=== PATIENT | male | born 1955 | race African-American/Black ===

== ENCOUNTER 2021-04-17 04:54 | Day surgery (SDC) | payer BC, OTHER ==
[2021-03-20 16:44] VITALS: BMI 29.2
[2021-04-17] MEDS ORDERED: MIDAZOLAM HCL 2 MG/2 ML SINGLE DOSE VIAL ONE (12:04)
[2021-04-17 13:08] VITALS: TEMP 97.3
[2021-04-17 14:11] VITALS: BP 102/72; PULSE 88
[2021-04-17 14:16] LABS: BASO % 1.9 % (0-2.0); HEMOGLOBIN 9.1 GM/dL (11.7-16.9); LYMPH % 23.3 % (8-40); MCH 24.9 pg (25.7-33.7); MCHC 31.5 g/dl (32.0-35.9); MEAN CELL VOLUME 79.2 fl (80-96); MEAN PLT VOLUME 9.8 fl (7.5-11.1); MONO % 7.7 % (3.8-10.2); NEUT % 66.1 % (42.8-82.8); PLATELET COUNT 184 10^3/uL (134-434); RBC 3.66 M/mm3 (4.00-5.60); RDW 17.1 % (11.9-15.9); WHITE BLOOD COUNT 3.2 K/mm3 (4.0-10.0)
[2021-04-17 14:23] LABS: INR 1.41 (0.83-1.09); PROTHROMBIN TIME (PATIENT) 16.5 SEC (9.7-13.0)
[2021-04-17 14:36] LABS: ALBUMIN 3.7 g/dl (3.4-5.0); CALCIUM 8.7 mg/dL (8.5-10.1)
[2021-04-17 14:38] LABS: BLOOD UREA NITROGEN 27.6 mg/dL (7-18)
[2021-04-17 14:40] LABS: CREATININE 1.5 mg/dL (0.55-1.3)
[2021-04-17 14:41] LABS: BILIRUBIN,TOTAL 1.7 mg/dL (0.2-1); TOT PROT 6.7 g/dl (6.4-8.2)
== END 2021-04-17 14:25 | disposition home or self-care (01) ==
LOC: JASU-ENDO 04:54
PROVIDERS: ATTEND Internal Medicine Gastroenterology
PROC: 0DB98ZX Excision of Duodenum, Via Natural or Artificial Opening Endoscopic, Diagnostic (ICD-10-PCS; 2021-04-17)
PROC: 0DB68ZX Excision of Stomach, Via Natural or Artificial Opening Endoscopic, Diagnostic (ICD-10-PCS; 2021-04-17)
PROC: 0DJD8ZZ Inspection of Lower Intestinal Tract, Via Natural or Artificial Opening Endoscopic (ICD-10-PCS; principal; 2021-04-17 12:00)
DX: Z12.11 Encounter for screening for malignant neoplasm of colon (principal); K57.30 Diverticulosis of large intestine without perforation or abscess without bleeding; K64.8 Other hemorrhoids; K29.50 Unspecified chronic gastritis without bleeding; B96.81 Helicobacter pylori [H. pylori] as the cause of diseases classified elsewhere; E11.9 Type 2 diabetes mellitus without complications
CPT/HCPCS: 43239; G0121; 36415; 80053; 85025; 85610; 86140; 88305-TC; 88342-TC